=== PATIENT | male | born 1990 | race Caucasian/White ===

== ENCOUNTER 2019-04-28 20:07 | Emergency (ER) | payer SELFPAY ==
[~2019-04-28] VITALS: Ht 175.3 cm; Wt 80.0 kg
[~2019-04-28 20:07] MED LIST: HYDR-523 PO; METF1000 PO
[2019-04-29] MEDS ORDERED: KETOROLAC 60MG/2ML VIAL IM ONE
[2019-04-29] MEDS ORDERED: HYDROCODONE/ACETAMINOPHEN 5/325MG TABLET PO ONE
[2019-04-29] MEDS ORDERED: LIDOCAINE HCL 1% 20ML VIAL (Pyxis) INJ INFIL ONE (01:45)
[2019-04-29 03:31] VITALS: BP 132/89
== END 2019-04-29 03:32 | disposition home or self-care (01) ==
LOC: ER 20:07
DX: S93.124A Dislocation of metatarsophalangeal joint of right lesser toe(s), initial encounter (principal); E11.9 Type 2 diabetes mellitus without complications; V49.88XA Car occupant (driver) (passenger) injured in other specified transport accidents, initial encounter; Y93.89 Activity, other specified; Y92.89 Other specified places as the place of occurrence of the external cause; Y99.8 Other external cause status
CPT/HCPCS: 73590; 73610; 73630; 96372; 99283; J1885; J3490; Z7610